=== PATIENT | female | born 1965 | race Caucasian/White ===

== ENCOUNTER 2016-11-28 04:48 | Inpatient (IN) | payer OTHER ==
--- NOTE | ~2016-11-28 | HC ---
[facility] [place] [address] CONSULTATION Name: MOLLY NAVAS Room #: 209-P ADM IN M.R.#: [id number] Admission: 11/28/16 Attend Phys: Cong Griffin MD Discharge: Date of : 65 Report #: [id number] THIS REPORT FOR: //name// CC: Gilbert Jung MD [facility] physician/PCP José Luis Griffin MD DATE OF SERVICE: 11/28/2016 HISTORY OF PRESENT ILLNESS: The patient is a 51-year-old female with intermittent nausea and vomiting and abdominal pain. She states she has had low midline abdominal pain for several years, in fact was diagnosed with a possible ovarian cyst and discussed surgical resection 2-1/2 years ago, but this was never performed. Apparently she was transferred from [facility] because she had increasing severe abdominal pain and vomiting. She was found to have a minimally elevated troponin level. Dr. José Luis Gustafson has evaluated the patient. Her repeat troponin here has been negative. She reports her stools have been thinner in general for a long period of time. She does not believe she has ever had a colonoscopy. She states her weight has increased over the last few months. She states in the last 8 days, she has had 2 episodes of vomiting. She does report some early satiety at times. She denies any blood in her stools. She denies any significant heartburn symptoms. No dysphagia. She denies any chest pain currently, no fevers or chills. She does report intermittent diarrhea in the last week as well, but again her stools have been thin without bleeding for some time. She does report still having menses. CT scan of the abdomen and pelvis was performed on admission here today, which showed a large heterogeneous mass within the uterus measuring 11.2 x 10.4 cm. Air fluid loops of small and large bowel suggesting enterocolitis or ileus was noted. The larger mass likely represents a fibroid. There is some free fluid in the cul-de-sac and the pelvis. PAST MEDICAL HISTORY: History of possible cyst, although this may be fibroid, noted 2-1/2 years ago per patient of either ovary or uterus. ALLERGIES: TYLENOL WITH CODEINE. REVIEW OF SYSTEMS: As per HPI. FAMILY HISTORY: Negative for colon cancer or inflammatory bowel disease. MEDICATIONS ON ADMISSION: None. SOCIAL HISTORY: She denies any tobacco use. She reports occasional alcohol [facility] [address] [place] [address] CONSULTATION Name: MOLLY NAVAS Room #: 209-P [facility] IN ..#: [id number] Admission: 11/28/16 Attend Phys: Cong Griffin MD Discharge: Date of : 65 Report #: [id number]. PHYSICAL EXAMINATION: VITAL SIGNS: Temperature is 98.0, pulse 84, blood pressure 114/72, respiratory rate is 18. GENERAL: She is alert and oriented x 3 in no acute distress. HEENT: Sclerae nonicteric. Oropharynx clear. NECK: Supple, without lymphadenopathy. CARDIOVASCULAR: Regular rate and rhythm. CHEST: Clear to auscultation bilaterally. ABDOMEN: Soft. She is mildly distended. Positive bowel sounds. She is mildly tender to palpation in the low abdomen bilaterally. EXTREMITIES: No cyanosis, clubbing or edema. LABORATORY DATA: Sodium 139, potassium 3.2, chloride 104, bicarbonate 28, BUN 18, creatinine 0.7, glucose 114. AST is 20, total bilirubin 0.8, alkaline phosphatase 111, ALT is 18, total protein 6.3, albumin is 2.9. Troponin is less than 0.04. WBC 12.5, hemoglobin 11.4, platelet count is 310. ASSESSMENT AND PLAN: Abdominal pain, nausea, vomiting, change in stool size. I reviewed the CT scan with radiologist. She does have a large mass. It appears to be in the uterus such as a fibroid. This is pressing or near the sigmoid colon, not causing obstruction, but may be causing symptoms, especially with thinning of her stools recently. also considered the possibility of enterocolitis. We will therefore check stool studies. She does have an elevated white count suggesting the possibility of infectious gastroenteritis. We will continue to monitor. Of note, contrast did pass through the small bowel into the terminal ileum area. I do not think a small bowel follow through would be of any benefit. Agree with OLDER WORKER SPECIALIST evaluation as the patient likely needs this mass resected. May need to consider endoscopy in the near future as well. Thank you for allowing me to participate in her care. <ELECTRONICALLY SIGNED> By: Yordan Mcdaniels MD 11/29/16 1028 1443 0056 Yordan Mcdaniels MD /nt
--- NOTE | ~2016-11-28 | HC ---
[facility] [place] [address] CONSULTATION Name: MOLLY NAVAS Room #: 209-P ADM IN M.R.#: [id number] Admission: 11/28/16 Attend Phys: Cong Griffin MD Discharge: Date of : 65 Report #: [id number] THIS REPORT FOR: //name// CC: Gilbert PARISI physician/PCP Cong Griffin DATE OF SERVICE: 11/28/2016 INDICATION: Troponin abnormalities. HISTORY OF PRESENT ILLNESS: This is a 51-year-old female who presented to [facility] with complaints of nausea, vomiting and abdominal pains. She has been experiencing intermittent abdominal pains for the past few years. This morning, she had severe pain associated with vomiting. She was found to have a minimally elevated troponin level and was subsequently transferred up to [facility] for further care. She offers no complaints of chest pains, shortness of breath, PND or orthopnea. PAST MEDICAL HISTORY: Denies any history of diabetes or hypertension. ALLERGIES: CODEINE. MEDICATIONS: None. SOCIAL HISTORY: Denies tobacco use. Has previously used drugs in the past. FAMILY HISTORY: Negative for premature CAD. REVIEW OF SYSTEMS: A full 10-point review of systems is performed. Only the pertinent positives and negatives are described in the HPI. PHYSICAL EXAMINATION: VITAL SIGNS: Blood pressure is 130/70, heart rate is 80 beats per minute. GENERAL APPEARANCE: This is a well-developed, well-nourished female in no acute respiratory distress. HEAD AND EYES: Normocephalic. Sclerae are anicteric. ENT: Oral mucosa moist. NECK: Supple. LUNGS: Clear to auscultation. CARDIAC: Regular rate and rhythm, S1, S2 positive. ABDOMEN: Soft. EXTREMITIES: No major joint deformities. No edema. ECG reveals sinus rhythm, otherwise unremarkable. [facility] [address] [place] [address] CONSULTATION Name: MOLLY NAVAS Room #: 209-P [facility] IN ..#: [id number] Admission: 11/28/16 Attend Phys: Cong Griffin MD Discharge: Date of : 65 Report #: [id number] LABORATORY VALUES: White count is 12.5, hemoglobin is 14.4. Sodium is 139, creatinine is 0.7. LFTs are within normal limits. CT of the abdomen reveals enterocolitis or ileus and large uterine mass. ASSESSMENT AND PLAN: 1. Minimal troponin level, the significance is unclear as this was done in an outside facility. We will repeat serial troponins here. No clinical symptoms to suggest a cardiac abnormality. 2. Abdominal pain, CT scan results noted. May be enterocolitis versus ileus. 3. Large uterine mass, consider a INSURANCE CLAIMS REPRESENTATIVE consultation. 4. Elevated white count, rule out sepsis. Thank you for allowing me to participate in the care of your patient. <ELECTRONICALLY SIGNED> By: José Luis Gustafson MD 11/28/16 1722 1133 1338 José Luis Gustafson MD /germaine
--- NOTE | ~2016-11-28 | H ---
[facility] [place] [address] HISTORY AND PHYSICAL Name: MOLLY NAVAS Room #: 209-P [facility] IN M.R.#: [id number] Admission: 11/28/16 Attend Phys: Cong Griffin MD Discharge: 11/29/16 Date of : 65 Report #: [id number] THIS REPORT FOR: //name// CC: Gilbert PARISI physician/PCP Cong Griffin CHIEF COMPLAINT: Abdominal pain. HISTORY OF PRESENT ILLNESS: This patient is transferred from [facility]. The patient is mainly transferred here because of elevated troponin at 0.114. The patient denied any chest pain, more of epigastric upset. She has been vomiting and this has been going on for a few weeks and more than a couple of months. She is certainly tender in the epigastric area also. Denied any chest pain and EKG was negative. Her troponin was slightly elevated certainly on the exam. She has been vomiting off and on, but lately last couple of days, it is more and more. No fever. She has not had any workup. She has not seen a doctor for a long time. She really does not know much about her medical history either. Two and a half years ago, she was told she had a cyst, questionable in the colon area, and not sure if it was a mass or cyst or what. She was supposed to have a surgery and she did not do the surgery. Now, she did not have any constipation and I think generalized mildly distended belly ____ severe rebound, guarding or anything like that. Certainly, she needs more workup looking for the abdomen, so I ordered the CT scan. She ____ EGD. GI was consulted. PAST MEDICAL HISTORY: Really not known much. She said she really does not have and she really has not seen the doctor. So, she really does not know much. PAST SURGICAL HISTORY: She denied. ALLERGIES: CODEINE that caused unknown reaction. FAMILY HISTORY: Very significant for positive diabetes in the family. She has had on her mother's side, mother and grandmother, all has diabetes. SOCIAL HISTORY: No smoking, no alcohol, no drugs anything like that. REVIEW OF SYSTEMS: I reviewed all the review of systems that are described in the HPI. Otherwise, they are reviewed as negative. Specifically, no TIA, no stroke. Denied any history of coronary artery disease. No prior history of CHF, hypertension or anything like that. No chest pain. Only mainly is epigastric and not really clear if she has a lot of risk factors because she has not seen the doctors for a long time. She does not really know much about that. No history of diabetes, any coronary artery disease. No abdominal pain. She said she was told she had a cyst in the abdomen area, could not tell me exactly what. She said she does have some problem with stools because of the cyst now and wondering if she had a colonic polyp or mass. We need to get further workup [address] [address] HISTORY AND PHYSICAL Name: MOLLY NAVAS Katelin Room #: 209-P DIS IN M.R.#: [id number] Admission: 11/28/16 Attend Phys: Cong Griffin MD Discharge: 11/29/16 Date of : 65 Report #: [id number] on that and I have ordered a CT already. The rest of review of systems as described in the HPI; otherwise, they are reviewed as negative. PHYSICAL EXAMINATION: VITAL SIGNS: I have reviewed all the records from the [facility] also. Her vital signs are not documented in the chart here. GENERAL: She is alert, awake, oriented and does not look like in distress. HEENT: Pupils equally round and reactive to light. Extraocular muscles intact. No nystagmus. No pallor. NECK: Supple. No JVD, no bruit. CHEST: Clear to auscultation. CARDIOVASCULAR: S1 and S2. ABDOMEN: Certainly, she has some vnzq-cz-velukped tenderness. It is more in the epigastric area. No rebound, no guarding. Bowel sounds present. EXTREMITIES: No edema. NEUROLOGIC: She is moving all extremities. PSYCHIATRIC: She is awake, alert, oriented and cooperative with exam. LABORATORY DATA: All the labs were done at [facility]. Her white count is 19, H and H 15.6 and 44.7 and platelets 365,000. Glucose 106, BUN 15, creatinine 0.7, sodium 139, potassium 3.4, chloride 102 and bicarbonate 27. U/A was negative. Troponin 0.114. Chest x-ray was reported negative. EKG, I looked at that. There are no acute findings. ASSESSMENT: 1. Mildly elevated troponin. That is the reason she was transferred and started on the heparin there. 2. Abdominal pain, epigastric. Needs further workup, CT abdomen and pelvis, and scope. 3. Questionable history of colonic polyp versus mass. We will follow up on all the workup as ordered. 4. Leukocytosis, unclear etiology. She does not look like any fever or infection going on, but certainly, we will go ahead and start the workup. Kelly culture and follow the CT abdomen. 5. Positive family history of diabetes. The patient denied any history of anything. PLAN: As described above, she has been in the hospital for certainly more than 2 days and 2 nights keeping the patient. <ELECTRONICALLY SIGNED> By: Cong Griffin MD 11/30/16 1351 0755 1052 Cong Griffin MD /nt
--- NOTE | ~2016-11-28 | EKG ---
[address] [address] ELECTROCARDIOGRAM REPORT Name: ELOISEMOLLY Katelin Room #: 209- ADM IN M.R.#: [id number] Admission: 11/28/16 Attend Phys: Cong Griffin MD Discharge: Date of : 65 Report #: [id number] THIS REPORT FOR: //name// [facility] Test Date: 2016-11-28 Test Time: 11:52:37 Pat Name: MOLLY NAVAS Department: Room: 209 Gender: F [employer] Shift Manager: zoë : 1965 Requested By: José Luis Gustafson Order Number: [id number] MD: José Luis Gustafson Measurements Intervals [place] Rate: 79 P: 49 IA: 161 QRS: 54 QRSD: 84 T: 59 QT: 395 QTc: 453 Interpretive Statements Sinus rhythm Low voltage, precordial leads No previous ECG available for comparison Electronically Signed On 11-29-2016 11:05:42 CDT by José Luis Gustafson [email or web address] <ELECTRONICALLY SIGNED> By: José Luis Gustafson MD 11/29/16 1105 1152 1152 José Luis Gustafson MD /BRO
[~2016-11-28 04:48] MED LIST: MOBIC7.5 M1 PO
[2016-11-28 08:00] VITALS: BP 136/76
[2016-11-28 09:08] LABS: ABSOLUTE NEUTROPHILS 9.7 thou/uL (1.4-8.2); BASOPHILS 0.4 % (0.0-2.0); EOSINOPHILS 1.1 % (0.0-3.0); HEMOGLOBIN 14.4 gm/dL (12.0-15.0); LYMPHOCYTES 12.2 % (24.0-44.0); MCH 30.3 pg (26.0-34.0); MCHC 34.2 g/dL (28.0-37.0); MCV 88.4 fL (80.0-100.0); MONOCYTES 8.5 % (1.0-8.0); PLATELET COUNT 310 thou/uL (150-400); POLYS 77.8 % (36.0-66.0); RBC 4.76 mil/uL (4.20-5.00); RDW 12.5 % (10.5-14.5); WBC 12.5 thou/uL (4.0-11.0)
[2016-11-28 09:11] LABS: MANUAL DIFF NO
[2016-11-28 09:20] LABS: ALBUMIN 2.9 g/dL (3.4-5.0); CALCIUM 7.8 mg/dL (8.5-10.1); CREATININE 0.7 mg/dL (0.6-1.0); POTASSIUM 3.2 mmol/L (3.5-5.1); TOTAL BILIRUBIN 0.8 mg/dL (<0.1-1.0); TOTAL PROTEIN 6.3 g/dL (6.4-8.2)
[2016-11-28 11:20] VITALS: BP 114/72
[2016-11-28 15:40] VITALS: BP 113/71
[2016-11-28 19:50] VITALS: BP 120/60
[2016-11-29 04:22] LABS: HEMATOCRIT 38.8 % (37.0-47.0); HEMOGLOBIN 13.3 gm/dL (12.0-15.0); MCH 30.6 pg (26.0-34.0); MCHC 34.2 g/dL (28.0-37.0); MCV 89.5 fL (80.0-100.0); RBC 4.34 mil/uL (4.20-5.00); RDW 12.5 % (10.5-14.5); WBC 5.4 thou/uL (4.0-11.0)
[2016-11-29 04:32] VITALS: BP 109/68
[2016-11-29 07:48] VITALS: BP 112/63
[2016-11-29] MEDS ORDERED: PROTONIX40 M1 PO (09:29)
[2016-11-29 11:55] VITALS: BP 108/64
[2016-11-29 14:28] VITALS: BP 108/64
== END 2016-11-29 15:02 | disposition home or self-care (01) | DRG 761 ==
LOC: 2N 04:48
PROVIDERS: Family Medicine; Specialist
DX: D25.9 Leiomyoma of uterus, unspecified (principal); K52.9 Noninfective gastroenteritis and colitis, unspecified; D72.829 Elevated white blood cell count, unspecified; N85.8 Other specified noninflammatory disorders of uterus; Z88.6 Allergy status to analgesic agent; Z83.3 Family history of diabetes mellitus
CPT/HCPCS: 10797